=== PATIENT | male | born 1965 | race Caucasian/White ===

== ENCOUNTER 2017-12-10 11:42 | Emergency (ER) | payer BC ==
[~2017-12-10 11:42] MED LIST: IBU800 PO; KET10 PO; LOR7.5/325 PO; NO ROUTINE MEDS; NOR10/325 PO; PER PO
--- NOTE | 2017-12-10 11:45 | ER Report ---
History and Physical Time Seen By MD: 11:45 HPI/ROS 52 y/o male was helping move furniture when he fell into a solid object casuing an abdominal hematoma yesterday, No with pain. and nausea Remainder of the 14 system rev: Yes Allergies: Coded Allergies: Propoxyphene (Verified Allergy, Mild, RASH, 03/16/10) Tramadol (Verified Allergy, Mild, RASH, 03/16/10) Tetracycline (Verified Adverse Reaction, Severe, NAUSEA VOMITING, 03/16/10 ) Uncoded Allergies: INAPSINE (Adverse Reaction, Severe, RAGE, 12/03/08) Home Meds Active Scripts Ibuprofen (IBUPROFEN) 600 Mg Tablet, 1 TAB PO Q6H for 10 Days, #30 TAB Prov:PRABHJOT MORGAN MD 12/10/17 Oxycodone Hcl/Acetaminophen (OXYCODONE-ACETAMINOPHEN 5-325) 1 Each Tablet, 1 EACH PO Q6H for 3 Days, #10 TAB Prov:PRABHJOT MORGAN MD 12/10/17 Reported Medications Oxycodone/Acetaminophen (OXYCODONE/ACETAMINOPHEN 5MG/325 MG) 5 Mg/325 Mg Tab, 1 TAB PO Q4-6H, #30 0 Refills 03/16/10 Ibuprofen (Motrin) 800 Mg Tab, 800 MG PO Q8H, 0 Refills 03/16/10 Reviewed Nurses Notes: Yes Old Medical Records Reviewed: Yes Hx Substance Use Disorder: No Hx Alcohol Use: Yes (RARE) Constitutional Physical Exam A/Ox3 in NAD CV: RRR n o m/r/g Lungs: cta b/l Abdomen: soft with ecchymoses to LUQ with TTP of LUQ and lower left ribs MSK: no flank TTP Medical Decision Making Data Points Laboratory Hematology Test 12/10/17 12:00 Red Blood Count 5.26 M/uL (4.00-5.60) Mean Corpuscular Volume 93.6 fL (80.0-96.0) Mean Corpuscular Hemoglobin 32.8 pg (26.0-33.0) Mean Corpuscular Hemoglobin Concent 35.1 g/dL (32.0-36.0) Red Cell Distribution Width 15.0 % (11.5-14.5) Mean Platelet Volume 7.1 fL (7.2-11.1) Neutrophils (%) (Auto) 64.5 % (39.4-72.5) Lymphocytes (%) (Auto) 23.8 % (17.6-49.6) Monocytes (%) (Auto) 11.2 % (4.1-12.4) Eosinophils (%) (Auto) 0.3 % (0.4-6.7) Basophils (%) (Auto) 0.2 % (0.3-1.4) Nucleated RBC Relative Count (auto) 0.0 /100WBC Neutrophils # (Auto) 6.3 K/uL (2.0-7.4) Lymphocytes # (Auto) 2.3 K/uL (1.3-3.6) Monocytes # (Auto) 1.1 K/uL (0.3-1.0) Eosinophils # (Auto) 0.0 K/uL (0.0-0.5) Basophils # (Auto) 0.0 K/uL (0.0-0.1) Nucleated RBC Absolute Count (auto) 0.00 K/uL Peripheral Blood Smear No Y/N Sodium Level 139 mmol/L (137-145) Potassium Level 3.9 mmol/L (3.5-5.0) Chloride Level 99 mmol/L (98-107) Carbon Dioxide Level 29 mmol/L (22-30) Blood Urea Nitrogen 14 mg/dl (9-21) Creatinine 1.20 mg/dl (0.66-1.25) Glomerular Filtration Rate Calc > 60.0 Random Glucose 95 mg/dl (75-110) Calcium Level 9.0 mg/dl (8.4-10.2) Total Bilirubin 0.6 mg/dl (0.2-1.3) Aspartate Amino Transf (AST/SGOT) 35 U/L (0-35) Alanine Aminotransferase (ALT/SGPT) 80 U/L (0-56) Alkaline Phosphatase 63 U/L (0-126) Total Protein 7.1 g/dl (6.3-8.2) Albumin 4.2 g/dl (3.5-5.0) Lipase 260 U/L (23-300) Chemistry Test 12/10/17 12:00 White Blood Count 9.8 k/uL (4.5-11.0) Red Blood Count 5.26 M/uL (4.00-5.60) Hemoglobin 17.3 g/dL (14.0-18.0) Hematocrit 49.2 % (42.0-52.0) Mean Corpuscular Volume 93.6 fL (80.0-96.0) Mean Corpuscular Hemoglobin 32.8 pg (26.0-33.0) Mean Corpuscular Hemoglobin Concent 35.1 g/dL (32.0-36.0) Red Cell Distribution Width 15.0 % (11.5-14.5) Platelet Count 264 K/uL (150-450) Mean Platelet Volume 7.1 fL (7.2-11.1) Neutrophils (%) (Auto) 64.5 % (39.4-72.5) Lymphocytes (%) (Auto) 23.8 % (17.6-49.6) Monocytes (%) (Auto) 11.2 % (4.1-12.4) Eosinophils (%) (Auto) 0.3 % (0.4-6.7) Basophils (%) (Auto) 0.2 % (0.3-1.4) Nucleated RBC Relative Count (auto) 0.0 /100WBC Neutrophils # (Auto) 6.3 K/uL (2.0-7.4) Lymphocytes # (Auto) 2.3 K/uL (1.3-3.6) Monocytes # (Auto) 1.1 K/uL (0.3-1.0) Eosinophils # (Auto) 0.0 K/uL (0.0-0.5) Basophils # (Auto) 0.0 K/uL (0.0-0.1) Nucleated RBC Absolute Count (auto) 0.00 K/uL Peripheral Blood Smear No Y/N Glomerular Filtration Rate Calc > 60.0 Calcium Level 9.0 mg/dl (8.4-10.2) Total Bilirubin 0.6 mg/dl (0.2-1.3) Aspartate Amino Transf (AST/SGOT) 35 U/L (0-35) Alanine Aminotransferase (ALT/SGPT) 80 U/L (0-56) Alkaline Phosphatase 63 U/L (0-126) Total Protein 7.1 g/dl (6.3-8.2) Albumin 4.2 g/dl (3.5-5.0) Lipase 260 U/L (23-300) ED Course/Re-evaluation ED Course In route from [facility] to [place]. Fell against object while moving furniture yesterday and sustained abdominal wall hematoma. CT scan/labs otherwise normal. No evidence of rib/splenic injury. Supportive care meds given. Decision to Disposition Date: Dec 10, 2017 Decision to Disposition Time: 14:40 Depart Departure Latest Vital Signs Impression: Primary Impression: Abdominal wall contusion Condition: Improved Disposition: HOME OR SELF-CARE New Scripts Ibuprofen (IBUPROFEN) 600 Mg Tablet 1 TAB PO Q6H for 10 Days, #30 TAB Prov: PRABHJOT MORGAN MD 12/10/17 Oxycodone Hcl/Acetaminophen (OXYCODONE-ACETAMINOPHEN 5-325) 1 Each Tablet 1 EACH PO Q6H for 3 Days, #10 TAB Prov: PRABHJOT MORGAN MD 12/10/17 Patient Instructions: Rib Contusion (ED) Additional Instructions: Obtain an MRI of your pancreas in the next 2-3 months. Avoid alcohol until you are fully healed Problem Qualifiers Primary Impression: Abdominal wall contusion Encounter type: initial encounter Qualified Codes: S30.1XXA - Contusion of abdominal wall, initial encounter PRABHJOT MORGAN MD Dec 10, 2017 11:45
[2017-12-10] MEDS ORDERED: MORPHINE 2 MG/ML SYR IVP ONE (12:35)
[2017-12-10] MEDS ORDERED: METOCLOPRAMIDE 10 MG/2 ML SDV IVP ONE (12:35)
[2017-12-10 12:48] LABS: PLATELET COUNT, AUTOMATED 264 K/uL (150-450)
[2017-12-10] MEDS ORDERED: IOPAMIDOL 76% 100 ML INFUS BTL 100 ML ONE (12:55)
--- NOTE | 2017-12-10 13:05 | EKG ---
FACILITY: [facility] PATIENT NAME: ARIANA LUGO : [id number] MR: [id number] V: [id number] EXAM DATE: ORDERING PHYSICIAN: PRABHJOT MORGAN TECHNOLOGIST: OUSMANE Peters Reason : Blood Pressure : / mmHG Vent. Rate : 103 BPM Atrial Rate : 103 BPM P-R Int : 152 ms QRS Dur : 104 ms QT Int : 324 ms P-R-T Axes : 011 -44 007 degrees QTc Int : 424 ms Sinus tachycardia Left axis deviation Cannot rule out Anterior infarct , age undetermined T flattening consistent with inferior ischemia vs normal variant No previous ECGs available Confirmed by LILIANA NASSAR ([id number]) on 12/10/2017 2:27:37 PM Referred By: CATHY Confirmed By:LILIANA NASSAR
--- NOTE | 2017-12-10 13:51 | RADIOLOGY IMAGING REPORT ---
FACILITY: [facility] PATIENT NAME: Kurt Segura : 1965 MR: [id number] V: [id number] EXAM DATE: ORDERING PHYSICIAN: PRABHJOT MORGAN TECHNOLOGIST: Location: [facility] [place] Patient: Kurt Segura : 1965 Visit/Account:[id number] Date of Sevice: 12/10/2017 EXAMINATION: CT chest with IV contrast CT abdomen with IV contrast CT pelvis with IV contrast HISTORY: Fall on table with right-sided chest abdomen pain and bruising. TECHNIQUE: Spiral scan was obtained through the chest, abdomen and pelvis during injection of nonio gerardo iodinated intravenous contrast. Sagittal and coronal reformatted images are also submitted. One of the following dose optimization techniques was utilized in the performance of this exam: Autom ated exposure control; adjustment of the mA and/or kV according to the patient's size; or use of an i terative reconstruction technique. Specific details can be referenced in the facility's radiology C T exam operational policy. CONTRAST: 100 mL of IV Isovue-370. COMPARISON: None. FINDINGS: CT THORAX: Lungs / pleura: No consolidation, pleural effusion or pneumothorax. No discrete nodule or focal inte rstitial opacities. Airways are clear. Mediastinum / claus: No abnormal density or enlarged lymph node. Heart / pericardium: Normal size without pericardial effusion. Mild coronary artery calcifications. Vessels: Aorta shows no indication of aneurysm or dissection. The pulmonary arteries are grossly nor mal. Musculoskeletal / Body wall: Bony structures show no acute fractures or aggressive bony lesions. Mil d degenerative changes spine. Degenerative change seen in both shoulders. The lower anterior subcutis fat of the chest wall does show some induration without hematoma. CT ABDOMEN AND PELVIS: Liver / biliary: Negative. Pancreas: Pancreatic duct is visualized but not dilated. No appreciable focal abnormality of the panc reas. Mild prominence of the pancreatic head without defined focal lesion or abnormality. Spleen: Negative. Adrenal glands: Negative. Kidneys: Negative. Pelvic structures: Pelvic structures visualized within normal limits. Small left inguinal hernia c ontaining fat. Bowel: Sigmoid colon does show a few diverticula without pericolonic inflammation. The colon shows no other focal normality. The appendix is normal with some debris in the lumen. The small bowel shows n o focal abnormality or obstruction. The stomach is unremarkable. Peritoneum / retroperitoneum / mesenteries: No free air, free fluid, fluid collections or areas of in flammation. Vessels: Negative. Musculoskeletal / Body wall: No fractures or aggressive bony lesions. There is a bilateral pars defec t at L5 level causing mild anterior spinal listhesis of L5 over S1 of approximately 7.5 mm. Minimal d egenerative change seen in the spine. Lymph node assessment: Negative. IMPRESSION: 1. No indication of acute abnormality or thoracic injury to the chest, abdomen or pelvis. 2. Mild prominence of the pancreatic head. No defined lesion is identified. The pancreatic duct is vi sualized but not dilated. This prominence of the pancreatic head could be normal variant prominence h owever suggest a follow-up nonemergent MRI of the pancreas without and with contrast, to further eval uate to exclude underlying lesion. 3. Sigmoid diverticulosis without radiographic indication diverticulitis. 4. Other chronic findings as above. Report Dictated By: Jose Reyna at 12/10/2017 1:36 PM Report E-Signed By: Jose Reyna at 12/10/2017 1:48 PM WSN:[id number]
[2017-12-10] MEDS ORDERED: OXYC-373 PO (14:42)
[2017-12-10] MEDS ORDERED: IBUP600T22 PO (14:42)
[2017-12-10 15:05] VITALS: BP 156/112
== END 2017-12-10 15:00 | disposition home or self-care (01) ==
LOC: ER 11:47
DX: S30.1XXA Contusion of abdominal wall, initial encounter (principal); R00.0 Tachycardia, unspecified
CPT/HCPCS: 71260; 74177; 83690; 85025; 93005; 96374; 96375; 99284; J2270; J2765; Q9967; 82040; 82247; 82310; 82374; 82435; 82565; 82947; 84075; 84132; 84155; 84295; 84450; 84460; 84520